=== PATIENT | male | born 1960 | race Caucasian/White ===

== ENCOUNTER 2021-07-17 08:42 | Outpatient (CLI) | payer MEDICARE ==
[2021-07-17 23:13] LABS: SARS-CoV-2 PCR by NAA Not Detected (NotDetected)
== END 2021-07-17 08:43 | disposition home or self-care (01) ==
LOC: CSHLAB 08:42
PROVIDERS: ATTEND Otolaryngology Otolaryngic Allergy
DX: Z20.822 Contact with and (suspected) exposure to COVID-19 (principal); G47.33 Obstructive sleep apnea (adult) (pediatric)
CPT/HCPCS: U0003; U0005

== ENCOUNTER 2021-07-22 08:09 | Day surgery (SDC) | payer MEDICARE ==
[2021-07-18 10:09] VITALS: BMI 29.2
[2021-07-22] MEDS ORDERED: Lidocaine 1% MPF 2 ML VIAL ONE (09:06)
[2021-07-22] MEDS ORDERED: Lidocaine 1% w/Epinephrine 1:100K 20 ML VIAL ONE (09:18)
[2021-07-22] MEDS ORDERED: EPINEPHrine 1 MG/ML AMP ONE (09:18)
[2021-07-22] MEDS ORDERED: CEFAZOLIN 1 GM VIAL ONE (09:18)
[2021-07-22] MEDS ORDERED: Propofol 1,000 MG/100 ML VIAL IV ONE (09:55)
[2021-07-22] MEDS ORDERED: Midazolam HCl 2 mg/2 ml Vial ONE (10:00)
[2021-07-22] MEDS ORDERED: Lidocaine 1% PF 5 ML VIAL ONE (10:00)
[2021-07-22] MEDS ORDERED: Dexamethasone 20 MG/5 ML VIAL ONE (10:00)
[2021-07-22] MEDS ORDERED: PROPOFOL 20 ML ONE (10:00)
[2021-07-22] MEDS ORDERED: Rocuronium Bromide 10 MG/ML (10ML VIAL) ONE (10:00)
[2021-07-22] MEDS ORDERED: Dexamethasone 4 mg/ml Vial ONE (10:00)
[2021-07-22] MEDS ORDERED: Fentanyl 250 MCG/5 ML VIAL ONE (10:00)
[2021-07-22] MEDS ORDERED: Ondansetron PF 4 MG/2 ML Vial ONE (10:00)
[2021-07-22] MEDS ORDERED: HYDROcodone/Acetaminophen 10/325 mg Tablet ONE (14:08)
== END 2021-07-22 14:40 | disposition home or self-care (01) ==
LOC: CSHSDC 08:09
PROVIDERS: ATTEND Otolaryngology Otolaryngic Allergy
DX: G47.33 Obstructive sleep apnea (adult) (pediatric) (principal); Z79.899 Other long term (current) drug therapy; Z79.82 Long term (current) use of aspirin; I10 Essential (primary) hypertension; F17.200 Nicotine dependence, unspecified, uncomplicated
CPT/HCPCS: 64582; C1820; C1898; J0171; J0690; J1100; J2250; J2405; J2704; J3010

== ENCOUNTER 2024-02-21 08:23 | Outpatient (CLI) | payer MEDICARE | END 2024-02-21 08:24 | disposition home or self-care (01) | LOC: CSHSLEEP 08:23 | PROVIDERS: ATTEND Internal Medicine Critical Care Medicine | DX: G47.33 Obstructive sleep apnea (adult) (pediatric) (principal) | CPT/HCPCS: 95800 ==